=== PATIENT | male | born 1985 | race African-American/Black ===

== ENCOUNTER → 2016-07-26 | Outpatient (CLI) | payer OTHER ==
--- NOTE | 2016-07-26 15:41 | RAD ---
HISTORY: Congestion Study: Chest two-view Comparison: None Findings: The trachea is midline. The cardiac silhouette is unremarkable. The lungs are clear without focal infiltrate or effusion. The bony thorax is unremarkable. IMPRESSION: 1. No acute cardiopulmonary disease. Reported By:
--- NOTE | 2016-07-26 16:01 | VAS ---
HISTORY: Extremity pain, swelling, and edema Study: Bilateral lower extremity Doppler venous ultrasound. TECHNIQUE: Multiple spain scale and color flow Doppler images of the deep venous system were obtaine d of the right and left lower extremity. FINDINGS: The deep venous system of the right and left lower extremities were evaluated from the le mable of the common femoral veins through the popliteal veins, bilaterally. Normal color flow and aug mentation can be observed. In addition, normal compression is seen throughout the deep venous syste m. No Vega's cyst is seen. IMPRESSION: 1. Negative examination for DVT. Reported By:
== END | disposition home or self-care (01) ==
LOC: RAD 14:35
DX: L03.116 Cellulitis of left lower limb (principal); L03.115 Cellulitis of right lower limb
CPT/HCPCS: 71020; 93970